=== PATIENT | female | born 1965 ===

== ENCOUNTER 2016-06-12 13:31 | Outpatient (CLI) | payer OTHER ==
--- NOTE | 2016-06-13 07:34 | CT ---
CT PELVIS WITHOUT CONTRAST: Date: 06-12-16 Technique: Spiral CT of the pelvis was obtained for evaluation of the right buttocks area where prio r trauma had occurred and a palpable abnormality was present. Axial slices were acquired without con trast from the iliac crests through the upper thighs. Coronal and sagittal reconstructions were subs equently done. FINDINGS: No fracture or acute bony abnormality was seen. The sacrum appeared intact. The SI joints were unrem arkable. Some posterior osteophytes are seen at the L5-S1 level, probably with no neural impingement , however. Internally, the pelvis was unremarkable. There were no adnexal masses, inflammatory changes or free fluid. A pronounced area of linear streaking is seen in the soft tissues of the buttocks on the right. This seems more linear than rounded. I certainly do not see a discrete mass, abscess, or focal hematoma. IMPRESSION: Unremarkable study except for several areas of pronounced linear streaking in the right buttocks cor relating with the area of concern. This is apparently residual change from the known trauma. POS: HOME
== END 2016-06-12 13:32 | disposition home or self-care (01) ==
LOC: BURCT 13:31
PROVIDERS: ATTEND Family Medicine
DX: T14.8 Other injury of unspecified body region (principal)
CPT/HCPCS: 72192